=== PATIENT | female | born 1980 | race Hispanic/Latino ===

== ENCOUNTER 2020-05-30 23:21 | Emergency (ER) | payer MEDICAID, OTHER ==
[2020-05-30] MEDS ORDERED: KETOROLAC 30MG VIAL (30MG/ML) ONE (23:57)
[2020-05-30] MEDS ORDERED: AMOX/CLAV 875/125MG TAB PO ONE (23:57)
== END 2020-05-31 00:32 | disposition home or self-care (01) ==
LOC: EDH 23:21
DX: K05.00 Acute gingivitis, plaque induced (principal); K00.6 Disturbances in tooth eruption; K04.7 Periapical abscess without sinus
CPT/HCPCS: 96372; 99283; J1885